=== PATIENT | male | born 1965 | race Caucasian/White ===

== ENCOUNTER 2018-09-01 10:37 | Inpatient (IN) | payer OTHER ==
[2018-09-01 11:50] VITALS: BMI 26.4
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
[2018-09-01] MEDS ORDERED: chlordiazePOXIDE HCL 25 MG CAPSULE PO PRN (12:47)
[2018-09-01] MEDS ORDERED: MAGNESIUM CITRATE 300 ML BOTTLE PO PRN (12:47)
[2018-09-01] MEDS ORDERED: ONDANSETRON *ODT* 4 MG TABLET SL PRN (12:47)
[2018-09-01] MEDS ORDERED: MAGNESIUM HYDROX 2400MG/30ML ORAL SUSPENSION 30 ML CUP PO PRN (12:47)
[2018-09-01] MEDS ORDERED: MENTHOL/PHENOL 1 EACH UD MM PRN (12:47)
[2018-09-01] MEDS ORDERED: IBUPROFEN 400 MG TABLET (FP) PO PRN (12:47)
[2018-09-01] MEDS ORDERED: hydrOXYzine PAMOATE 25 MG CAPSULE (FP) PO PRN (12:47)
[2018-09-01] MEDS ORDERED: DICYCLOMINE HCL 10 MG CAPSULE PO PRN (12:47)
[2018-09-01] MEDS ORDERED: ACETAMINOPHEN 325 MG TABLET (FP) PO PRN ×2 (12:47)
[2018-09-01] MEDS ORDERED: chlordiazePOXIDE HCL 25 MG CAPSULE PO ONE (14:00)
[2018-09-01] MEDS: chlordiazePOXIDE HCL 25 MG CAPSULE PO SCH ×2 (17:41→22:12)
[2018-09-01 17:45] LABS: HEMATOCRIT 38.7 % (35.4-49); HEMOGLOBIN 12.9 GM/dL (11.7-16.9); MCH 30.4 pg (25.7-33.7); MCHC 33.3 g/dl (32.0-35.9); MEAN CELL VOLUME 91.4 fl (80-96); MEAN PLT VOLUME 10.3 fl (7.5-11.1); RBC 4.24 M/mm3 (4.00-5.60); RDW 14.8 % (11.9-15.9); WHITE BLOOD COUNT 2.6 K/mm3 (4.0-10.0)
[2018-09-01 17:57] LABS: ALBUMIN 3.6 g/dl (3.4-5.0); BILIRUBIN,TOTAL 0.4 mg/dL (0.2-1); BLOOD UREA NITROGEN 15.2 mg/dL (7-18); CREATININE 1.2 mg/dL (0.55-1.3); TOT PROT 7.5 g/dl (6.4-8.2)
[2018-09-01 20:23] LABS: PLATELET COUNT 87 K/MM3 (134-434)
[2018-09-01] MEDS: THIAMINE HCL 100 MG TABLET (FP) PO SCH (22:13)
[2018-09-01] MEDS: MELATONIN 5 MG TABLETS PO PRN (22:13)
[2018-09-02] MEDS ORDERED: METHADONE HCL 40 MG DISPERSABLE TABLET ONE (04:06)
[2018-09-02] MEDS ORDERED: METHADONE HCL 10 MG TABLET ONE (04:06)
[2018-09-02] MEDS: METHADONE 80 MG, METHADONE 30 MG PO SCH (05:48)
[2018-09-02] MEDS: chlordiazePOXIDE HCL 25 MG CAPSULE PO SCH ×4 (05:48→22:14)
[2018-09-02] MEDS: MAG HYDROX/AL HYDROX/SIMETH 30 ML UNIT-DOSE CUP PO PRN ×2 (05:53→19:04)
[2018-09-02] MEDS ORDERED: METHADONE HCL 40 MG DISPERSABLE TABLET PO SCH ×2 (06:00)
--- NOTE | 2018-09-02 08:38 | EKG ---
Test Reason : Blood Pressure : / mmHG Vent. Rate : 033 BPM Atrial Rate : 033 BPM P-R Int : 132 ms QRS Dur : 094 ms QT Int : 588 ms P-R-T Axes : 003 -10 016 degrees QTc Int : 435 ms MARKED SINUS BRADYCARDIA NONSPECIFIC T WAVE ABNORMALITY ABNORMAL ECG NO PREVIOUS ECGS AVAILABLE Confirmed by RITESH RAMIREZ, ALBERTA ([id number]) on 09/02/2018 8:37:46 AM Referred By: Confirmed By:ALBERTA AWAD MD
[2018-09-02] MEDS: NICOTINE POLACRILEX 4 MG GUM BUC PRN (09:30)
[2018-09-02] MEDS: PRENATAL VITAMINS W/ FOLIC ACID TABLET (FP) PO SCH (10:14)
[2018-09-02] MEDS: METHOCARBAMOL 500 MG TABLET PO PRN ×2 (10:16→17:15)
[2018-09-02] MEDS: EMTRICITAB/RILPIVIRINE/TENOFOV 1 EACH TABLET PO SCH (11:42)
--- NOTE | 2018-09-02 12:29 | PN ---
S CIWA - CIWA Score Nausea/Vomitin-No Nausea/No Vomiting Muscle Tremors: 2 Anxiety: 2 Agitation: 2 Paroxysmal Sweats: 2 Orientation: 0-Oriented Tacttile Disturbances: 0-None Auditory Disturbances: 0-None Visual Disturbances: 0-None Headache: 2-Mild CIWA-Ar Total Score: 10 S Progress Note (SOAP) Subjective: c/o sweats, headache, anxiety, and back pain. Objective: 09/02/18 12:27 Vital Signs 09/02/18 09/02/18 09/02/18 06:16 09:45 10:15 Temperature 97 F L 97.0 F L 97.0 F L Pulse Rate 41 L 101 H 57 L Respiratory 18 18 18 Rate Blood Pressure 130/80 129/88 98/70 Lab Results WBC 2.6 K/mm3 (4.0-10.0) L 09/01/18 13:00 RBC 4.24 M/mm3 (4.00-5.60) 09/01/18 13:00 Hgb 12.9 GM/dL (11.7-16.9) 09/01/18 13:00 Hct 38.7 % (35.4-49) 09/01/18 13:00 MCV 91.4 fl (80-96) 09/01/18 13:00 MCHC 33.3 g/dl (32.0-35.9) 09/01/18 13:00 RDW 14.8 % (11.9-15.9) 09/01/18 13:00 Plt Count 87 K/MM3 (134-434) L 09/01/18 13:00 Sodium 140 mmol/L (136-145) 09/01/18 13:00 Potassium 5.0 mmol/L (3.5-5.1) 09/01/18 13:00 Chloride 106 mmol/L (98-107) 09/01/18 13:00 Carbon Dioxide 32 mmol/L (21-32) 09/01/18 13:00 Anion Gap 1 MMOL/L (8-16) L 09/01/18 13:00 BUN 15.2 mg/dL (7-18) 09/01/18 13:00 Creatinine 1.2 mg/dL (0.55-1.3) 09/01/18 13:00 Random Glucose 83 mg/dL (74-106) 09/01/18 13:00 Calcium 9.0 mg/dL (8.5-10.1) 09/01/18 13:00 Labs pending. Assessment: 09/02/18 12:28 AOX3, in no respiratory distress, full rom, ambulating in the unit. Withdrawal symptoms. Plan: continue detox increase fluids
[2018-09-02] MEDS: THIAMINE HCL 100 MG TABLET (FP) PO SCH (22:14)
[2018-09-02] MEDS: MELATONIN 5 MG TABLETS PO PRN (22:15)
[2018-09-03] MEDS ORDERED: METHADONE HCL 10 MG TABLET ONE (04:02)
[2018-09-03] MEDS ORDERED: METHADONE HCL 40 MG DISPERSABLE TABLET ONE (04:02)
[2018-09-03] MEDS: METHADONE 80 MG, METHADONE 30 MG PO SCH (05:50)
[2018-09-03] MEDS: chlordiazePOXIDE HCL 25 MG CAPSULE PO SCH ×2 (05:50→10:21)
[2018-09-03] MEDS: METHOCARBAMOL 500 MG TABLET PO PRN ×3 (05:53→22:07)
[2018-09-03] MEDS: EMTRICITAB/RILPIVIRINE/TENOFOV 1 EACH TABLET PO SCH (07:45)
[2018-09-03] MEDS: PRENATAL VITAMINS W/ FOLIC ACID TABLET (FP) PO SCH (10:21)
[2018-09-03] MEDS: NICOTINE POLACRILEX 4 MG GUM BUC PRN ×2 (10:35→16:55)
--- NOTE | 2018-09-03 14:08 | PN ---
[facility] CIWA - CIWA Score Nausea/Vomitin-Mild Nausea/No Vomiting Muscle Tremors: 2 Anxiety: 2 Agitation: 2 Paroxysmal Sweats: 1-Minimal Palms Moist Orientation: 0-Oriented Tacttile Disturbances: 0-None Auditory Disturbances: 0-None Visual Disturbances: 0-None Headache: 0-None Present CIWA-Ar Total Score: 8 S Progress Note (SOAP) Subjective: feeling ok today mild tremor less anxious Objective: 09/03/18 14:50 Vital Signs Temperature 97.0 F L 09/03/18 13:56 Pulse Rate 52 L 09/03/18 13:56 Respiratory Rate 20 09/03/18 13:56 Blood Pressure 121/79 09/03/18 13:56 O2 Sat by Pulse Oximetry (%) Laboratory Last Values WBC 2.6 K/mm3 (4.0-10.0) L 09/01/18 13:00 RBC 4.24 M/mm3 (4.00-5.60) 09/01/18 13:00 Hgb 12.9 GM/dL (11.7-16.9) 09/01/18 13:00 Hct 38.7 % (35.4-49) 09/01/18 13:00 MCV 91.4 fl (80-96) 09/01/18 13:00 MCH 30.4 pg (25.7-33.7) 09/01/18 13:00 MCHC 33.3 g/dl (32.0-35.9) 09/01/18 13:00 RDW 14.8 % (11.9-15.9) 09/01/18 13:00 Plt Count 87 K/MM3 (134-434) L 09/01/18 13:00 MPV 10.3 fl (7.5-11.1) 09/01/18 13:00 Manual Slide Review No clumping seen 09/01/18 13:00 Platelet Comment Dec 09/01/18 13:00 Sodium 140 mmol/L (136-145) 09/01/18 13:00 Potassium 5.0 mmol/L (3.5-5.1) 09/01/18 13:00 Chloride 106 mmol/L (98-107) 09/01/18 13:00 Carbon Dioxide 32 mmol/L (21-32) 09/01/18 13:00 Anion Gap 1 MMOL/L (8-16) L 09/01/18 13:00 BUN 15.2 mg/dL (7-18) 09/01/18 13:00 Creatinine 1.2 mg/dL (0.55-1.3) 09/01/18 13:00 Est GFR (CKD-EPI)AfAm 80.10 09/01/18 13:00 Est GFR (CKD-EPI)NonAf 69.11 09/01/18 13:00 Random Glucose 83 mg/dL (74-106) 09/01/18 13:00 Calcium 9.0 mg/dL (8.5-10.1) 09/01/18 13:00 Total Bilirubin 0.4 mg/dL (0.2-1) 09/01/18 13:00 AST 23 U/L (15-37) 09/01/18 13:00 ALT 19 U/L (13-61) 09/01/18 13:00 Alkaline Phosphatase 105 U/L (45-117) 09/01/18 13:00 Total Protein 7.5 g/dl (6.4-8.2) 09/01/18 13:00 Albumin 3.6 g/dl (3.4-5.0) 09/01/18 13:00 RPR Titer Nonreactive (NONREACTIVE) 09/01/18 13:00 lab noted low wbc low plat discontinue motrin long history of hiv treated with complera patient is taking endocet 10-325 mg po bid daily last 30 days filled 08/28/18 09/03/18 14:55 Assessment: 09/03/18 14:57 alcohol withdrawal sx patient has positive ppd chest x ray tomorrow 09/04/18 Plan: continue detox chronic low wbc related to hiv status
[2018-09-03] MEDS: chlordiazePOXIDE HCL 10 MG CAPSULE PO SCH ×2 (16:54→22:07)
[2018-09-03] MEDS: THIAMINE HCL 100 MG TABLET (FP) PO SCH (22:07)
[2018-09-03] MEDS: MELATONIN 5 MG TABLETS PO PRN (22:08)
[2018-09-03] MEDS: MAG HYDROX/AL HYDROX/SIMETH 30 ML UNIT-DOSE CUP PO PRN (22:46)
[2018-09-04] MEDS ORDERED: METHADONE HCL 10 MG TABLET ONE (04:49)
[2018-09-04] MEDS ORDERED: METHADONE HCL 40 MG DISPERSABLE TABLET ONE (04:49)
[2018-09-04] MEDS: METHADONE 80 MG, METHADONE 30 MG PO SCH (05:19)
[2018-09-04] MEDS: chlordiazePOXIDE HCL 10 MG CAPSULE PO SCH ×3 (05:19→16:53)
[2018-09-04] MEDS: METHOCARBAMOL 500 MG TABLET PO PRN ×2 (05:20→16:55)
[2018-09-04] MEDS: EMTRICITAB/RILPIVIRINE/TENOFOV 1 EACH TABLET PO SCH (07:43)
[2018-09-04] MEDS: PRENATAL VITAMINS W/ FOLIC ACID TABLET (FP) PO SCH (10:06)
[2018-09-04] MEDS: NICOTINE POLACRILEX 4 MG GUM BUC PRN (10:09)
--- NOTE | 2018-09-04 10:25 | PN ---
[facility] CIWA - CIWA Score Nausea/Vomitin-Mild Nausea/No Vomiting Muscle Tremors: 2 Anxiety: 2 Agitation: 1-Slight > Activity Paroxysmal Sweats: No Perspiration Orientation: 0-Oriented Tacttile Disturbances: 0-None Auditory Disturbances: 0-None Visual Disturbances: 0-None Headache: 0-None Present CIWA-Ar Total Score: 6 S Progress Note (SOAP) Subjective: feeling better today discuss aftercare with staff tolerate food and fluid well less tremor Objective: 09/04/18 10:23 Vital Signs Temperature 98.6 F 09/04/18 09:06 Pulse Rate 56 L 09/04/18 09:06 Respiratory Rate 18 09/04/18 09:06 Blood Pressure 125/77 09/04/18 09:06 O2 Sat by Pulse Oximetry (%) Laboratory Last Values WBC 2.6 K/mm3 (4.0-10.0) L 09/01/18 13:00 RBC 4.24 M/mm3 (4.00-5.60) 09/01/18 13:00 Hgb 12.9 GM/dL (11.7-16.9) 09/01/18 13:00 Hct 38.7 % (35.4-49) 09/01/18 13:00 MCV 91.4 fl (80-96) 09/01/18 13:00 MCH 30.4 pg (25.7-33.7) 09/01/18 13:00 MCHC 33.3 g/dl (32.0-35.9) 09/01/18 13:00 RDW 14.8 % (11.9-15.9) 09/01/18 13:00 Plt Count 87 K/MM3 (134-434) L 09/01/18 13:00 MPV 10.3 fl (7.5-11.1) 09/01/18 13:00 Manual Slide Review No clumping seen 09/01/18 13:00 Platelet Comment Dec 09/01/18 13:00 Sodium 140 mmol/L (136-145) 09/01/18 13:00 Potassium 5.0 mmol/L (3.5-5.1) 09/01/18 13:00 Chloride 106 mmol/L (98-107) 09/01/18 13:00 Carbon Dioxide 32 mmol/L (21-32) 09/01/18 13:00 Anion Gap 1 MMOL/L (8-16) L 09/01/18 13:00 BUN 15.2 mg/dL (7-18) 09/01/18 13:00 Creatinine 1.2 mg/dL (0.55-1.3) 09/01/18 13:00 Est GFR (CKD-EPI)AfAm 80.10 09/01/18 13:00 Est GFR (CKD-EPI)NonAf 69.11 09/01/18 13:00 Random Glucose 83 mg/dL (74-106) 09/01/18 13:00 Calcium 9.0 mg/dL (8.5-10.1) 09/01/18 13:00 Total Bilirubin 0.4 mg/dL (0.2-1) 09/01/18 13:00 AST 23 U/L (15-37) 09/01/18 13:00 ALT 19 U/L (13-61) 09/01/18 13:00 Alkaline Phosphatase 105 U/L (45-117) 09/01/18 13:00 Total Protein 7.5 g/dl (6.4-8.2) 09/01/18 13:00 Albumin 3.6 g/dl (3.4-5.0) 09/01/18 13:00 RPR Titer Nonreactive (NONREACTIVE) 09/01/18 13:00 lab noted long history of low wbc and plat patient agrees to follow up with hiv specialist and methadone program Assessment: 09/04/18 10:24 alcohol and benzo withdrawal sx Plan: continue detox
[2018-09-04] MEDS: MELATONIN 5 MG TABLETS PO PRN (21:49)
[2018-09-04] MEDS: THIAMINE HCL 100 MG TABLET (FP) PO SCH (21:49)
[2018-09-05] MEDS ORDERED: METHADONE HCL 10 MG TABLET ONE (04:50)
[2018-09-05] MEDS ORDERED: METHADONE HCL 40 MG DISPERSABLE TABLET ONE (04:50)
[2018-09-05] MEDS: METHADONE 80 MG, METHADONE 30 MG PO SCH (05:11)
[2018-09-05] MEDS: chlordiazePOXIDE HCL 10 MG CAPSULE PO SCH (05:11)
[2018-09-05] MEDS: EMTRICITAB/RILPIVIRINE/TENOFOV 1 EACH TABLET PO SCH (08:42)
[2018-09-05 09:10] VITALS: BP 122/87; PULSE 61; TEMP 98.3
[2018-09-05] MEDS: METHOCARBAMOL 500 MG TABLET PO PRN (10:55)
[2018-09-05] MEDS: PRENATAL VITAMINS W/ FOLIC ACID TABLET (FP) PO SCH (10:55)
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
== END 2018-09-05 15:05 | disposition other institution (70) | DRG 773 ==
LOC: YASAS 10:37 → Y3N 13:44
PROVIDERS: ADMIT Surgery; ATTEND Surgery
PROC: HZ2ZZZZ Detoxification Services for Substance Abuse Treatment (ICD-10-PCS; principal; 2018-09-01)
DX: F10.230 Alcohol dependence with withdrawal, uncomplicated (principal); F13.230 Sedative, hypnotic or anxiolytic dependence with withdrawal, uncomplicated; F11.20 Opioid dependence, uncomplicated; F14.20 Cocaine dependence, uncomplicated; F17.210 Nicotine dependence, cigarettes, uncomplicated; F41.9 Anxiety disorder, unspecified; F32.9 Major depressive disorder, single episode, unspecified; Z21 Asymptomatic human immunodeficiency virus [HIV] infection status; D69.6 Thrombocytopenia, unspecified; D72.819 Decreased white blood cell count, unspecified; I10 Essential (primary) hypertension; K21.9 Gastro-esophageal reflux disease without esophagitis; B18.2 Chronic viral hepatitis C; R76.11 Nonspecific reaction to tuberculin skin test without active tuberculosis; Z87.820 Personal history of traumatic brain injury
CPT/HCPCS: 36415; 71046-TC-FY; 80053; 85027; 86593; 93005; 93010

== ENCOUNTER 2018-09-05 15:17 | Inpatient (IN) | payer OTHER ==
[2018-09-05] MEDS ORDERED: guaiFENesin 200 MG/10 ML 10 ML UNIT-DOSE CUPS PO PRN (16:15)
[2018-09-05] MEDS ORDERED: MENTHOL/PHENOL 1 EACH UD MM PRN (16:15)
[2018-09-05] MEDS ORDERED: P-EPHED 60MG/TRIPROLIDI 2.5MG TABLET PO PRN (16:15)
[2018-09-05] MEDS ORDERED: MAGNESIUM HYDROX 2400MG/30ML ORAL SUSPENSION 30 ML CUP PO PRN (16:15)
[2018-09-05] MEDS ORDERED: MAGNESIUM CITRATE 300 ML BOTTLE PO PRN (16:15)
[2018-09-05] MEDS ORDERED: MAG HYDROX/AL HYDROX/SIMETH 30 ML UNIT-DOSE CUP PO PRN (16:15)
[2018-09-05] MEDS ORDERED: NICOTINE POLACRILEX 4 MG GUM BUC PRN (16:15)
[2018-09-05] MEDS ORDERED: ACETAMINOPHEN 325 MG TABLET (FP) PO PRN (16:15)
--- NOTE | 2018-09-05 16:16 | HP ---
SAMIA RAMIREZ Rehab Assess/Revision - Admission History Admitted to Rehab from: [facility] Date of Admission to Rehab: 09/05/2018 - Vital signs Vital Signs: Vital Signs Period Temp Pulse Resp BP Sys/Walker Pulse Ox Last 24 Hr 56 130/85 - Findings Detox History & Physical reviewed: Yes Concur with findings: Yes Comments/Additional Findings: PATIENT'S MEDICAL / MEDICATION HISTORY REVIEWED PRIOR TO DISCHARGE FROM DETOX UNIT. PATIENT WAS DISCHARGED FROM DETOX UNIT TO BE TAKEN OVER TO REHAB UNIT IN STABLE MEDICAL CONDITION. Inpatient Rehab Admission - Rehab Decision to Admit Inpatient rehab admission?: Yes - Initial Determination Are CD services needed?: Yes Free of communicable disease: Yes Not in need of hospitalization: Yes - Rehab Admission Criteria Previous failed treatment: Yes Poor recovery environment: Yes Comorbidities: Yes Lacks judgement: No Patient is meeting Inpatient Rehab admission criteria:: Yes
[2018-09-05] MEDS: THIAMINE HCL 100 MG TABLET (FP) PO SCH (21:54)
[2018-09-05] MEDS: MELATONIN 5 MG TABLETS PO PRN (21:54)
[2018-09-06] MEDS: LOPERAMIDE HCL 2 MG CAPSULE PO PRN ×2 (06:33→19:11)
[2018-09-06] MEDS ORDERED: METHADONE HCL 40 MG DISPERSABLE TABLET PO SCH (07:45)
[2018-09-06] MEDS ORDERED: METHADONE HCL 10 MG TABLET ONE (08:56)
[2018-09-06] MEDS ORDERED: METHADONE HCL 40 MG DISPERSABLE TABLET ONE (08:57)
[2018-09-06] MEDS: METHADONE 80 MG, METHADONE 30 MG PO SCH (09:06)
[2018-09-06] MEDS: PRENATAL VITAMINS W/ FOLIC ACID TABLET (FP) PO SCH (09:06)
[2018-09-06] MEDS: EMTRICITAB/RILPIVIRINE/TENOFOV 1 EACH TABLET PO SCH (10:24)
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
[2018-09-06] MEDS ORDERED: PNEUMOC 13-VAL CONJ-DIP CRM/PF 0.5 ML DISP.SYRIN IM ONE (12:00)
[2018-09-06] MEDS: THIAMINE HCL 100 MG TABLET (FP) PO SCH (21:52)
[2018-09-06] MEDS: MELATONIN 5 MG TABLETS PO PRN (21:53)
[2018-09-07] MEDS: METHADONE 80 MG, METHADONE 30 MG PO SCH (06:18)
[2018-09-07] MEDS ORDERED: METHADONE HCL 40 MG DISPERSABLE TABLET ONE (06:18)
[2018-09-07] MEDS ORDERED: METHADONE HCL 10 MG TABLET ONE (06:18)
[2018-09-07] MEDS: EMTRICITAB/RILPIVIRINE/TENOFOV 1 EACH TABLET PO SCH (10:48)
[2018-09-07] MEDS: PRENATAL VITAMINS W/ FOLIC ACID TABLET (FP) PO SCH (10:48)
[2018-09-07] MEDS: MELATONIN 5 MG TABLETS PO PRN (22:08)
[2018-09-07] MEDS: THIAMINE HCL 100 MG TABLET (FP) PO SCH (22:08)
[2018-09-08] MEDS ORDERED: METHADONE HCL 40 MG DISPERSABLE TABLET ONE (06:06)
[2018-09-08] MEDS ORDERED: METHADONE HCL 10 MG TABLET ONE (06:06)
[2018-09-08] MEDS: METHADONE 80 MG, METHADONE 30 MG PO SCH (06:07)
[2018-09-08] MEDS: EMTRICITAB/RILPIVIRINE/TENOFOV 1 EACH TABLET PO SCH (10:52)
[2018-09-08] MEDS: PRENATAL VITAMINS W/ FOLIC ACID TABLET (FP) PO SCH (10:52)
[2018-09-08] MEDS: MELATONIN 5 MG TABLETS PO PRN (21:56)
[2018-09-08] MEDS: THIAMINE HCL 100 MG TABLET (FP) PO SCH (21:56)
[2018-09-09] MEDS ORDERED: METHADONE HCL 10 MG TABLET ONE (06:13)
[2018-09-09] MEDS ORDERED: METHADONE HCL 40 MG DISPERSABLE TABLET ONE (06:14)
[2018-09-09] MEDS: METHADONE 80 MG, METHADONE 30 MG PO SCH (06:14)
[2018-09-09] MEDS: IBUPROFEN 400 MG TABLET (FP) PO PRN (07:19)
[2018-09-09] MEDS: PRENATAL VITAMINS W/ FOLIC ACID TABLET (FP) PO SCH (10:38)
[2018-09-09] MEDS: EMTRICITAB/RILPIVIRINE/TENOFOV 1 EACH TABLET PO SCH (10:38)
[2018-09-09] MEDS: MELATONIN 5 MG TABLETS PO PRN (22:08)
[2018-09-09] MEDS: THIAMINE HCL 100 MG TABLET (FP) PO SCH (22:08)
[2018-09-10] MEDS ORDERED: METHADONE HCL 40 MG DISPERSABLE TABLET ONE (05:54)
[2018-09-10] MEDS ORDERED: METHADONE HCL 10 MG TABLET ONE (05:54)
[2018-09-10] MEDS: METHADONE 80 MG, METHADONE 30 MG PO SCH (05:55)
[2018-09-10] MEDS: PRENATAL VITAMINS W/ FOLIC ACID TABLET (FP) PO SCH (11:00)
[2018-09-10] MEDS: EMTRICITAB/RILPIVIRINE/TENOFOV 1 EACH TABLET PO SCH (11:01)
[2018-09-10] MEDS: MELATONIN 5 MG TABLETS PO PRN (22:07)
[2018-09-10] MEDS: THIAMINE HCL 100 MG TABLET (FP) PO SCH (22:07)
[2018-09-11] MEDS ORDERED: METHADONE HCL 10 MG TABLET ONE (05:50)
[2018-09-11] MEDS ORDERED: METHADONE HCL 40 MG DISPERSABLE TABLET ONE (05:50)
[2018-09-11] MEDS: METHADONE 80 MG, METHADONE 30 MG PO SCH (06:03)
[2018-09-11] MEDS: PRENATAL VITAMINS W/ FOLIC ACID TABLET (FP) PO SCH (11:14)
[2018-09-11] MEDS: EMTRICITAB/RILPIVIRINE/TENOFOV 1 EACH TABLET PO SCH (11:14)
--- NOTE | 2018-09-11 14:28 | PN ---
S Progress Note Note: PT REPORTS HE HAS A PRIMARY CARE PROVIDER DR. ALCARAZ AT [facility] ON [address] [place] [address]. PH: . PT TO MAKE APPOINTMENT WITH HIS PCP BEFORE DISCHARGE FROM REHAB.
[2018-09-11] MEDS: IBUPROFEN 400 MG TABLET (FP) PO PRN (21:49)
[2018-09-11] MEDS: THIAMINE HCL 100 MG TABLET (FP) PO SCH (21:49)
[2018-09-11] MEDS: MELATONIN 5 MG TABLETS PO PRN (21:49)
[2018-09-12] MEDS ORDERED: METHADONE HCL 10 MG TABLET ONE (04:51)
[2018-09-12] MEDS ORDERED: METHADONE HCL 40 MG DISPERSABLE TABLET ONE (04:52)
[2018-09-12] MEDS: METHADONE 80 MG, METHADONE 30 MG PO SCH (06:02)
[2018-09-12] MEDS: EMTRICITAB/RILPIVIRINE/TENOFOV 1 EACH TABLET PO SCH (10:45)
[2018-09-12] MEDS: PRENATAL VITAMINS W/ FOLIC ACID TABLET (FP) PO SCH (10:45)
[2018-09-12] MEDS: MELATONIN 5 MG TABLETS PO PRN (21:52)
[2018-09-12] MEDS: THIAMINE HCL 100 MG TABLET (FP) PO SCH (21:52)
[2018-09-13] MEDS ORDERED: METHADONE HCL 10 MG TABLET ONE (06:29)
[2018-09-13] MEDS ORDERED: METHADONE HCL 40 MG DISPERSABLE TABLET ONE (06:30)
[2018-09-13] MEDS: METHADONE 80 MG, METHADONE 30 MG PO SCH (06:30)
[2018-09-13] MEDS: PRENATAL VITAMINS W/ FOLIC ACID TABLET (FP) PO SCH (10:46)
[2018-09-13] MEDS: EMTRICITAB/RILPIVIRINE/TENOFOV 1 EACH TABLET PO SCH (10:46)
[2018-09-13] MEDS: IBUPROFEN 400 MG TABLET (FP) PO PRN (10:47)
[2018-09-13] MEDS: THIAMINE HCL 100 MG TABLET (FP) PO SCH (21:45)
[2018-09-13] MEDS: MELATONIN 5 MG TABLETS PO PRN (21:45)
[2018-09-14] MEDS: METHADONE 80 MG, METHADONE 30 MG PO SCH (05:57)
[2018-09-14] MEDS ORDERED: METHADONE HCL 10 MG TABLET ONE (05:57)
[2018-09-14] MEDS ORDERED: METHADONE HCL 40 MG DISPERSABLE TABLET ONE (05:57)
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
[2018-09-14] MEDS: IBUPROFEN 400 MG TABLET (FP) PO PRN (10:43)
[2018-09-14] MEDS: PRENATAL VITAMINS W/ FOLIC ACID TABLET (FP) PO SCH (10:43)
[2018-09-14] MEDS: EMTRICITAB/RILPIVIRINE/TENOFOV 1 EACH TABLET PO SCH (10:43)
--- NOTE | 2018-09-14 13:48 | PN ---
S Progress Note Note: PT REPORTED TO NURSE FIDELIA HE WAS HAVING CHEST DISCOMFORT ON LEFT LOWER CHEST/ LEFT UPPER ABDOMEN. NO SPECIFIC CHARACTER TO TYPE OF PAIN WAS DESCRIBED BY PATIENT. PAIN STARTED AFTER LUNCH. PT WAS SEEN PLAYING PING PONG SOON AFTER COMPLAINT IN THE DAY ROOM AND SUCKING ON [employer]. PT REPORTS HX GERD AND WAS ON NEXIUM WHICH HE HAS NOT TAKEN SINCE HE WAS ADMITTED. PT DOES NOT APPEAR IN ACUTE DISTRESS. PT WAS SEEN EARLIER THIS MORNING. ALERT O X 3. DENIES SOB,N/V OR DIZZINESS. Vital Signs - 24 hr 09/14/18 09/14/18 09/14/18 00:30 03:30 07:25 Temperature 97.7 F Pulse Rate 56 L Respiratory 18 18 18 Rate Blood Pressure 141/85 CARDIAC:S1 S2,SINUS BRADYCARDIA EKG WAS REPEATED SINUS BRADYCARDIA MOD VOLTAGE CRITERIA FOR LVH, MAY BE NORMAL VARIANT BORDERLINE ECG EKG OF 09/01/18: SINUS BRADYCARDIA NONSPECIFIC T WAVE ABNORMALITY ABNORMAL ECG ABDOMEN;SOFT,NT,+BS A:GERD PLAN:MYLANTA PRN ZANTAC 150 MG PO BID, FIRST DOSE NOW INCREASE PO FLUIDS MONITOR FURTHER CHEST DISCOMFORT.
[2018-09-14] MEDS ORDERED: RANITIDINE HCL 150 MG TABLET (FP) PO ONE (14:00)
--- NOTE | 2018-09-14 16:31 | EKG ---
Test Reason : Blood Pressure : / mmHG Vent. Rate : 058 BPM Atrial Rate : 058 BPM P-R Int : 134 ms QRS Dur : 094 ms QT Int : 452 ms P-R-T Axes : 050 -22 032 degrees QTc Int : 443 ms SINUS BRADYCARDIA MODERATE VOLTAGE CRITERIA FOR LVH, MAY BE NORMAL VARIANT BORDERLINE ECG WHEN COMPARED WITH ECG OF 01-SEP-2018 13:58, VENT. RATE HAS INCREASED BY 25 BPM Confirmed by JAVAN RAMIREZ, NATHAN ([id number]) on 09/14/2018 4:31:00 PM Referred By: Janiya SOLOMON Confirmed By:NATHAN EDOUARD MD
[2018-09-14] MEDS: MELATONIN 5 MG TABLETS PO PRN (22:08)
[2018-09-14] MEDS: THIAMINE HCL 100 MG TABLET (FP) PO SCH (22:08)
[2018-09-14] MEDS: RANITIDINE HCL 150 MG TABLET (FP) PO SCH (22:10)
[2018-09-15] MEDS ORDERED: METHADONE HCL 40 MG DISPERSABLE TABLET ONE (06:24)
[2018-09-15] MEDS: METHADONE 80 MG, METHADONE 30 MG PO SCH (06:24)
[2018-09-15] MEDS ORDERED: METHADONE HCL 10 MG TABLET ONE (06:24)
[2018-09-15] MEDS: PRENATAL VITAMINS W/ FOLIC ACID TABLET (FP) PO SCH (11:00)
[2018-09-15] MEDS: EMTRICITAB/RILPIVIRINE/TENOFOV 1 EACH TABLET PO SCH (11:00)
[2018-09-15] MEDS: RANITIDINE HCL 150 MG TABLET (FP) PO SCH ×2 (11:00→22:06)
[2018-09-15 11:50] LABS: HEMATOCRIT 41.6 % (35.4-49); MCH 30.2 pg (25.7-33.7); MCHC 33.6 g/dl (32.0-35.9); MEAN CELL VOLUME 90.1 fl (80-96); MEAN PLT VOLUME 9.3 fl (7.5-11.1); PLATELET COUNT 143 K/MM3 (134-434); RBC 4.62 M/mm3 (4.00-5.60); RDW 15.8 % (11.9-15.9); WHITE BLOOD COUNT 5.1 K/mm3 (4.0-10.0)
[2018-09-15] MEDS: THIAMINE HCL 100 MG TABLET (FP) PO SCH (22:06)
[2018-09-16] MEDS ORDERED: METHADONE HCL 10 MG TABLET ONE (05:08)
[2018-09-16] MEDS ORDERED: METHADONE HCL 40 MG DISPERSABLE TABLET ONE (05:09)
[2018-09-16] MEDS: METHADONE 80 MG, METHADONE 30 MG PO SCH (06:21)
[2018-09-16] MEDS: PRENATAL VITAMINS W/ FOLIC ACID TABLET (FP) PO SCH (10:36)
[2018-09-16] MEDS: RANITIDINE HCL 150 MG TABLET (FP) PO SCH ×2 (10:36→21:50)
[2018-09-16] MEDS: EMTRICITAB/RILPIVIRINE/TENOFOV 1 EACH TABLET PO SCH (10:38)
[2018-09-16] MEDS ORDERED: COLLOIDAL OATMEAL 1 BAR EACH TP PRN (11:48)
--- NOTE | 2018-09-16 11:52 | PN ---
[facility] Progress Note Note: rash in body,no itching ,possible sensitive skin,will order aveeno soap Laboratory Last Values WBC 5.1 K/mm3 (4.0-10.0) 09/15/18 09:20 RBC 4.62 M/mm3 (4.00-5.60) 09/15/18 09:20 Hgb 14.0 GM/dL (11.7-16.9) 09/15/18 09:20 Hct 41.6 % (35.4-49) 09/15/18 09:20 MCV 90.1 fl (80-96) 09/15/18 09:20 MCH 30.2 pg (25.7-33.7) 09/15/18 09:20 MCHC 33.6 g/dl (32.0-35.9) 09/15/18 09:20 RDW 15.8 % (11.9-15.9) 09/15/18 09:20 Plt Count 143 K/MM3 (134-434) D 09/15/18 09:20 MPV 9.3 fl (7.5-11.1) 09/15/18 09:20
[2018-09-16] MEDS: MELATONIN 5 MG TABLETS PO PRN (21:50)
[2018-09-16] MEDS: THIAMINE HCL 100 MG TABLET (FP) PO SCH (21:50)
[2018-09-17] MEDS ORDERED: METHADONE HCL 10 MG TABLET ONE (04:59)
[2018-09-17] MEDS ORDERED: METHADONE HCL 40 MG DISPERSABLE TABLET ONE (04:59)
[2018-09-17] MEDS: METHADONE 80 MG, METHADONE 30 MG PO SCH (06:07)
[2018-09-17] MEDS: EMTRICITAB/RILPIVIRINE/TENOFOV 1 EACH TABLET PO SCH (10:34)
[2018-09-17] MEDS: PRENATAL VITAMINS W/ FOLIC ACID TABLET (FP) PO SCH (10:34)
[2018-09-17] MEDS: RANITIDINE HCL 150 MG TABLET (FP) PO SCH ×2 (10:34→21:44)
[2018-09-17] MEDS: MELATONIN 5 MG TABLETS PO PRN (21:44)
[2018-09-17] MEDS: THIAMINE HCL 100 MG TABLET (FP) PO SCH (21:44)
[2018-09-18] MEDS: METHADONE 80 MG, METHADONE 30 MG PO SCH (05:50)
[2018-09-18] MEDS ORDERED: METHADONE HCL 10 MG TABLET ONE (05:50)
[2018-09-18] MEDS ORDERED: METHADONE HCL 40 MG DISPERSABLE TABLET ONE (05:50)
[2018-09-18] MEDS: RANITIDINE HCL 150 MG TABLET (FP) PO SCH ×2 (10:45→21:37)
[2018-09-18] MEDS: EMTRICITAB/RILPIVIRINE/TENOFOV 1 EACH TABLET PO SCH (10:45)
[2018-09-18] MEDS: PRENATAL VITAMINS W/ FOLIC ACID TABLET (FP) PO SCH (10:45)
[2018-09-18] MEDS: THIAMINE HCL 100 MG TABLET (FP) PO SCH (21:37)
[2018-09-19] MEDS: METHADONE 80 MG, METHADONE 30 MG PO SCH (06:27)
[2018-09-19] MEDS ORDERED: METHADONE HCL 10 MG TABLET ONE (06:27)
[2018-09-19] MEDS ORDERED: METHADONE HCL 40 MG DISPERSABLE TABLET ONE (06:27)
[2018-09-19 06:58] VITALS: BP 142/80; PULSE 55; TEMP 97.2
[2018-09-19] MEDS: EMTRICITAB/RILPIVIRINE/TENOFOV 1 EACH TABLET PO SCH (09:26)
[2018-09-19] MEDS: PRENATAL VITAMINS W/ FOLIC ACID TABLET (FP) PO SCH (09:26)
[2018-09-19] MEDS: RANITIDINE HCL 150 MG TABLET (FP) PO SCH (09:26)
--- NOTE | 2018-09-19 10:54 | PN ---
S Progress Note Note: Patient is discharged today. Script for 30 days supply of Wellbutrin XL 300 mg/ day electronically transferred to [facility] at [address] [place] [id number]
[2018-09-20] MEDS ORDERED: METHADONE 80 MG, METHADONE 30 MG PO SCH (06:00)
== END 2018-09-19 09:30 | disposition home or self-care (01) | DRG 772 ==
LOC: YASAS 15:17 → Y5N 15:19
PROVIDERS: ADMIT Neuromusculoskeletal Medicine & OMM; ATTEND Neuromusculoskeletal Medicine & OMM
PROC: HZ42ZZZ Group Counseling for Substance Abuse Treatment, Cognitive-Behavioral (ICD-10-PCS; principal; 2018-09-05)
DX: F10.20 Alcohol dependence, uncomplicated (principal); F11.20 Opioid dependence, uncomplicated; F13.20 Sedative, hypnotic or anxiolytic dependence, uncomplicated; F14.20 Cocaine dependence, uncomplicated; F17.210 Nicotine dependence, cigarettes, uncomplicated; F32.9 Major depressive disorder, single episode, unspecified; F19.24 Other psychoactive substance dependence with psychoactive substance-induced mood disorder; Z21 Asymptomatic human immunodeficiency virus [HIV] infection status; R00.1 Bradycardia, unspecified; R94.31 Abnormal electrocardiogram [ECG] [EKG]; R21 Rash and other nonspecific skin eruption; K21.9 Gastro-esophageal reflux disease without esophagitis; D69.6 Thrombocytopenia, unspecified; B18.2 Chronic viral hepatitis C
CPT/HCPCS: 36415; 85027; 90670; 93005; 93010